=== PATIENT | male | born 1940 | race Caucasian/White ===

== ENCOUNTER → 2017-10-02 09:19 | Outpatient (CLI) | payer MEDICARE, OTHER ==
[2013-12-16 08:24] VITALS: BMI 27.9
[~2017-10-02 09:19] MED LIST: ALBUTEROL2.5 MG/0.5 UPD; AMARYL1 MG PO; GLUCOPHAGE850 MG PO; LOTREL 10/20 CA1 CAP PO; ONGLYZA5 MG PO
[2017-10-02 10:03] LABS: BASOPHILS 0.5 % (0-2); EOSINOPHILS 4.1 % (0-7); HEMATOCRIT 41.6 % (42.0-54.0); HEMOGLOBIN 14.3 g/dL (13.5-17.5); IMMATURE GRANULOCYTES 0.2 % (0-5); LYMPHOCYTES 18.8 % (15-50); MCH 31.2 pg (26.0-34.0); MCHC 34.4 g/dL (31.0-37.0); MCV 90.8 fL (80.0-100.0); MONOCYTES 8.5 % (2-11); NEUTROPHILS 67.9 % (40-80); PLATELET COUNT 218 10x3/uL (130-400); RBC 4.58 10x6/uL (4.20-6.10); WBC 6.3 10x3/uL (4.8-10.8)
[2017-10-02 10:16] LABS: ALBUMIN 3.7 g/dL (3.4-5.0); ANION GAP 15.1 mmol/L (8-16); BILIRUBIN - TOTAL 0.61 mg/dL (0.2-1.3); CALCIUM 8.7 mg/dL (8.5-10.1); CARBON DIOXIDE 26.3 mmol/L (21.0-32.0); CHOL - HDL RATIO 5.7 ratio (2.3-4.9); CREATININE - SERUM 1.3 mg/dL (0.6-1.3); LDL-HDL RATIO 4.1 ratio (1.5-3.5); POTASSIUM - SERUM 4.4 mmol/L (3.5-5.1); PROTEIN - SERUM 7.2 g/dL (6.4-8.2); THYROID STIMULATING HORMONE 1.72 uIU/mL (0.36-3.74)
== END | disposition home or self-care (01) ==
LOC: D.LAB 09:19
PROVIDERS: Family Medicine
DX: R63.4 Abnormal weight loss (principal); E78.81 Lipoid dermatoarthritis; E11.9 Type 2 diabetes mellitus without complications

== ENCOUNTER → 2017-11-14 12:38 | Outpatient (CLI) | payer MEDICARE, OTHER ==
[2013-12-16 08:24] VITALS: BMI 27.9
--- NOTE | ~2017-11-14 | EC ---
PATIENT:ELROY SCOTT DATE OF SERVICE: 11/14/17 SEX: M MEDICAL RECORD: [id number] DATE OF : 40 LOCATION:[facility] AGE OF PATIENT: 77 ADMISSION DATE: 11/14/17 REFERRING PHYSICIAN: INTERPRETING PHYSICIAN: ARCADIO KIRAN MD ECHOCARDIOGRAM REPORT ECHO CHARGES 4 ECHO COMPLETE Date: 11/14 CLINICAL DIAGNOSIS: CHEST PAIN,FATIGHE,HTN/PALPS ECHOCARDIOGRAPHIC MEASUREMENTS (adult normal given) AC root (d.<3.7cm) 4.4 cm LV Septum d (<1.2 cm> 2.1 cm Valve Excursion 1.8 cm LV Septum (systole) 2.2 cm Left Atria (s.<4.0cm> 4.0 cm LVPW d(<1.2cm) 1.7 cm RV (d.<2.3cm) 4.2 cm LVPW (sytole) 2.2 cm LV diastole(<5.6CM) 5.6 cm MV E-F(>70mm/sec) cm LV systole 3.2 cm LVOT Diameter 1.9 cm MV exc.(>10mm) 2.0 cm Est.ejection fraction (50-75%) % DOPPLER: LVIT cm/sec A 133 cm/sec E 91.0 cm/sec LA cm/sec RVSP 50 mmHg LVOT 119 cm/sec AOP1/2T 482 m/s Asc. Ao 158 cm/sec RVOT 79 cm/sec RA cm/sec PA 121 cm/sec AV Gradient Peak 9.95 mmHg AV Mean 1.02 mmHg AV Area 4.0 cm MV Gradient Peak 6.10 mmHg MV Mean 2.09 mmHg MV Area cm COMMENTS: E Learning Developer: 2 DIANE MI Senior Production Supervisor: 4 Dr. Kiran TAPE# PACS Pericardial Effusion N DATE OF SERVICE: PROCEDURE: Transthoracic echocardiogram. FINDINGS: 1. The patient has moderate concentric left ventricular hypertrophy. Inflow characteristics consistent with diastolic dysfunction. Ejection fraction 65%. 2. The left atrium is mildly dilated. 3. The mitral valve has mild mitral regurgitation. 4. The tricuspid valve has mild tricuspid regurgitation, RVSP of 50 mmHg. ECHOCARDIOGRAM REPORT [id number] ELROY SCOTT 5. The right ventricle is moderately dilated as well as the right atrium. 6. The pulmonic valve has mild pulmonic insufficiency and there is no pericardial effusion. CONCLUSION: The patient has evidence of moderate hypertensive heart disease with preserved LV systolic function, mild pulmonary hypertension. Right-sided dilatation may be secondary to hypertensive heart disease. TRANSINT:[id number] Voice Confirmation ID: [id number] DOCUMENT ID: [id number] ARCADIO KIRAN MD at 1120 CC: [id number] DICTATION DATE: 11/20/17 0949 ADMINISTRATIVE REPRESENTATIVE: 11/20/17 1031 DEP CLI 11/14/17 [id number] [place] [address]
[~2017-11-14 12:38] MED LIST changes: +ASPIRIN81 MG PO; +BENADRYL25 MG PO; +CORDARONE200 MG PO; +FORTAMET1000 MG/BO PO; +GLIMEPIRIDE4 MG PO; +GLUCOPHAGE1000 MG PO; +HYDRALAZINE HCL25 MG PO; +LIPITOR10 MG PO; +LISINOPRIL2.5 MG PO; +LOPRESSOR25 MG PO; +NORCO-5 PO
[2018-01-08 11:24] VITALS: BMI 25.8
== END | disposition home or self-care (01) ==
LOC: D.ECHO 12:38
DX: R09.89 Other specified symptoms and signs involving the circulatory and respiratory systems (principal); I20.9 Angina pectoris, unspecified; R07.9 Chest pain, unspecified; R00.2 Palpitations; E78.2 Mixed hyperlipidemia; R53.83 Other fatigue; I10 Essential (primary) hypertension; E11.9 Type 2 diabetes mellitus without complications

== ENCOUNTER → 2017-12-19 06:35 | Outpatient (CLI) | payer MEDICARE, OTHER ==
[~2017-12-19] VITALS: Ht 180.3 cm; Wt 77.3 kg
--- NOTE | ~2017-12-19 | HEMODYNAMI ---
PATIENT:ELROY SCOTT MEDICAL RECORD: [id number] : 40 LOCATION:[facility] ADMISSION DATE: 12/19/17 Generatedon:12/19/20179:06 Patient name: ELROY SCOTT Patient #: [id number] : 1940 Date of study: 12/19/2017 Page: Of Hemodynamic Procedure Report Patient Data Patient Demographics Procedure consent was obtained First Name: ELROY Gender: Male Last Name: TYLER : 1940 Middle Initial: FRANCISCA Age: 77 year(s) Patient #: [id number] Race: SSN: [id number] Additional ID: [id number] Contact details [address]: [address] [place] [address] State: [place] City: [place] Zip code: [address] Past Medical History Allergies Allergen Reaction Date Comments Reported Other allergy 12/19/2017 IODINATED CONTRAST- ORAL AND IV, SHELLFISH DERIVED, MORPHINE Admission Admission Data Admission Date: 12/19/2017 Admission Time: 6:35 Arrival Date: 12/19/2017 Arrival Time: 0:00 Admit Source: Other Insurance Payor: Medicare Height (in.): 71 BSA: 1.97 (m2) Height (cm.): 180.34 BMI: 23.71 (kg/m2) Weight (lbs.): 170 Weight (kg.): 77.11 Lab Results Lab Result Date: 12/19/2017 Lab Result Time: 0:00 Biochemistry Name Units Result Min Max BUN mg/dl 25 --(----)-* 7 18 Creatinine mg/dl 1.3 --(---*)-- 0.6 1.3 CBC Name Units Result Min Max Hemoglobin g/dl 13.9 --(*---)-- 13.5 17.5 Procedure Procedure Types Cath Procedure Diagnostic Procedure [facility] LHC w/Coronaries Sedation Charges Moderate Sedation up to 15 minutes Procedure Description Procedure Date Procedure Date: 12/19/2017 Procedure Start Time: 8:49 Procedure End Time: 9:03 Procedure Staff Name Function Leroy Puente MD Performing Physician Lupe Ramirez RT Monitor Krystal Kelly RT Scrub Clovis Wolfe RN Nurse Boaz Lopez RN Kitchen Steward Procedure Data Cath Procedure Fluoroscopy Diagnostic fluoroscopy Total fluoroscopy Time: 4 time: 4 min min Diagnostic fluoroscopy Total fluoroscopy dose: 464 dose: 464 mGy mGy Contrast Material Contrast Material Type Amount (ml) Isovue 300 36 Entry Location Entry Primary Successful Side Size Upsize Upsize Entry Closure Vines ccessful Closure Location (Fr) 1 (Fr) 2 (Fr) Remarks Device Remarks Radial Right 6 Fr Mechanical artery Short Compression Estimated blood loss: 5 ml Diagnostic catheters Device Type Used For End Catheter Placement DIAGNOSTIC Nabil 110cm Multi-vessel 5Fr catheter ([id number]) Angiography Procedure Complications No complications Procedure Medications Medication Administration Route Dosage 0.9% NaCl I.V. 100 ml/hr Oxygen etCO2 Nasal cannula 2 l/min Heparin Flush Bag added to field 2 bags (1000units/500ml NS) Lidocaine 2% added to field 20 Versed I.V. 1 mg Fentanyl I.V. 25 mcg Radial Cocktail added to field 1 syringe (Verapomil 2mg/Nitro 400mcg/Heparin 1500units) Radial Cocktail I.A. 1 syringe (Verapomil 2mg/Nitro 400mcg/Heparin 1500units) Hemodynamics Rest BSA: 1.97 (m2) HGB: 13.9 (g/dl) O2 Consumption: Estimated: 220.14 (ml/min) O2 Co nsumption indexed: Estimated:111.75 (ml/min/m) Heart Rate: 62 (bpm) Pressure Samples Time Site Value (mmHg) Purpose Heart Use Rate(bpm) 8:54 LV 169/15,28 EDP 65 Gradients Valve Time Site Site Mean SEP/DFP Peak To Heart Use 1 2 (mmHg) (sec/min) Peak Rate (mmHg) (bpm) Aortic 8:55 LV AO 66 Snapshots Pre Cath Intra NCS Post Cath Vital Signs Time Heart Resp SPO2 etCO2 NIBP (mmHg) Rhythm Pain Sedation Rate (ipm) (%) (mmHg) Status Level (bpm) 8:43:41 63 14 97 0 185/96(152) NSR 0 (11) 10(A) , No pain 8:48:32 63 21 96 25.6 170/89(145) NSR 0 (11) 10(A) , No pain 8:53:13 68 12 98 20.3 152/89(128) NSR 0 (11) 9(A) , No pain 8:57:53 65 18 97 34.6 163/88(138) NSR 0 (11) 9(A) , No pain 9:02:38 64 20 97 33.1 164/87(144) NSR 0 (11) 9(A) , No pain Medications Time Medication Route Dose Verified Delivered Reason Notes Effectiveness by by 8:49:27 0.9% NaCl I.V. 100 Clovis Clovis Per ml/hr Lorbrenda Wolfe physician RN RN 8:49:36 Oxygen etCO2 2 l/min Clovis Clovis Per Nasal Yaneth Wolfe physician cannula RN RN 8:49:46 Heparin Flush added 2 bags Clovis Clovis used for Bag to Yaneth Wolfe procedure (1000units/500ml field RN RN NS) 8:51:01 Lidocaine 2% added 20ml Clovis Clovis for local to vial Lorigan Yaneth anesthetic field RN RN 8:51:10 Versed I.V. 1 mg Clovis Clovis for sedation Yaneth Wolfe RN RN 8:51:18 Fentanyl I.V. 25 mcg Clovis Clovis for sedation Yaneth Wolfe RN RN 8:51:30 Radial Cocktail added 1 Clovis Clovis used for (Verapomil to syringe Yaneth Wolfe procedure 2mg/Nitro RN RN 400mcg/Heparin 1500units) 8:51:44 Radial Cocktail I.A. 1 Clovis Leroy for (Verapomil syringe Yaneth grimes 2mg/Nitro RN 400mcg/Heparin 1500units) Procedure Log Time Note 8:08:50 Signed procedure consent form obtained from patient. 8:08:51 Time tracking: Regular hours (M-F 7:00 - 5:00) 8:08:54 Plan of Care:Hemodynamics will remain stable., Cardiac rhythm will remain stable., Comfort level will be maintained., Respiratory function will remain adequate., Patient/ family verbilizes understanding of procedure., Procedure tolerated without complication., Recovers from procedure without complications.. 8:12:43 Patient allergic to Other allergyIODINATED CONTRAST- ORAL AND IV, SHELLFISH DERIVED, MORPHINE 8:13:05 Lab Result : Creatinine 1.3 mg/dl 8:13:05 Lab Result : BUN 25 mg/dl 8:13:05 Lab Result : Hemoglobin 13.9 g/dl 8:18:33 Clovis Wolfe RN sent for patient. Start room use. 8:20:15 H&P Date Dictated: 12/16/2017 Within 30 days and on chart., H&P Addendum completed by physician on day of procedure. (MUST COMPLETE FOR ALL OUTPATIENTS). 8:26:57 Patient received from Pre/Post Procedure Room to CCL 1 Alert and oriented. Tansferred to table in Supine position. 8:26:59 Warm blankets applied, and sonia hugger turned on for patient comfort. 8:27:00 Correct patient and procedure confirmed by team. 8:27:01 ECG and BP/O2 sat monitors applied to patient. 8:42:45 Vital chart was started 8:42:46 Baseline sample Acquired. 8:42:56 Rhythm: sinus rhythm 8:42:58 Full Disclosure recording started 8:42:59 Pre-procedure instructions explained to patient. 8:43:00 Pre-op teaching completed and patient verbalized understanding. 8:43:01 Family in waiting room. 8:43:03 Patient NPO since Midnight. 8:43:09 Is the patient allergic to Iodine/contrast media? Yes. 8:43:10 Was the patient premedicated? Yes 8:43:11 Is patient on blood thinner?Yes 8:43:14 ACC The patient was administered the following blood thiners within the last 24 hours: ACCPlavix 8:43:15 Patient diabetic? Yes. 8:43:16 If diabetic: On Metformin? Yes 8:43:20 If on Metformin: Last Dose? 12/17/2017 8:43:23 Previous problem with sedation/anesthesia? No ? 8:43:25 Snore? Yes 8:43:26 Sleep apnea? No 8:43:26 Deviated septum? No 8:43:27 Opens mouth fully? Yes 8:43:28 Sticks out tongue? Yes 8:43:31 Airway obstruction? Yes COPD 8:43:36 Dentures? Yes IN TIGHT 8:43:42 Pre procedure: right dorsailis pedis pulse 1+ Palpable, but thready & weak; easily obliterated 8:43:44 Pre procedure: left dorsailis pedis pulse 1+ Palpable, but thready & weak; easily obliterated 8:43:46 Patient pain scale 0/10 ?. 8:43:51 IV patent on arrival in left forearm with 0.9% NaCl at [facility]. 8:43:53 Lab results completed and on chart. 8:43:57 Right Radial & Right Groin area was prepped with chlora-prep and draped in sterile fashion 8:43:58 Alarms reviewed by R. N. 8:43:59 Sharps counted by scrub and verified by R.N. 8:44:01 Physician arrived 8:44:01 --------ALL STOP TIME OUT------ 8:44:02 Final Timeout: patient, procedure, and site verified with staff and physician. All members of the team are in agreement. 8:44:03 Right Radial & Right Groin site verified by team. 8:44:06 Physical assessment completed. ASA score P 2 - A patient with mild systemic disease as per Leroy Puente MD. 8:44:10 Sedation plan: IV Moderate Sedation Medication:Versed, Fentanyl 8:44:14 Use device set Radial Dx or PCI 8:44:15 ACIST Syringe (15346) opened to sterile field. 8:44:16 Medline Cath Pack ([id number]) opened to sterile field. 8:44:16 Bag Decanter (2002) opened to sterile field. 8:44:16 DIAGNOSTIC WIRE .035 260cm J wire (273437) opened to sterile field. 8:44:17 ACIST Hand Control (88949) opened to sterile field. 8:44:17 ACIST Manifold (48436) opened to sterile field. 8:44:18 Tegaderm 4 x 4 (1626W) opened to sterile field. 8:44:18 MBrace Wrist Support ([id number]) opened to sterile field. 8:44:20 SHEATH 6Fr Prelude Radial ([id number]) opened to sterile field. 8:49:27 0.9% NaCl 100 ml/hr I.V. was administered by Clovis Wolfe RN; Per physician; 8:49:36 Oxygen 2 l/min etCO2 Nasal cannula was administered by Clovis Wolfe RN; Per physician; 8:49:36 Procedure started. 8:49:40 Local anesthetic to right radial artery with Lidocaine 2% by Leroy Puente MD.INITIAL ACCESS ONLY 8:49:46 Heparin Flush Bag (1000units/500ml NS) 2 bags added to field was administered by Clovis Wolfe RN; used for procedure; 8:49:50 A 6 Fr Short sheath was inserted into the Right Radial artery 8:51:01 Lidocaine 2% 20ml vial added to field was administered by Clovis Wolfe RN; for local anesthetic; 8:51:10 Versed 1 mg I.V. was administered by Clovis Wolfe RN; for sedation; 8:51:18 Fentanyl 25 mcg I.V. was administered by Clovis Wolfe RN; for sedation; 8:51:30 Radial Cocktail (Verapomil 2mg/Nitro 400mcg/Heparin 1500units) 1 syringe added to field was administered by Clovis Wolfe RN; used for procedure; 8:51:44 Radial Cocktail (Verapomil 2mg/Nitro 400mcg/Heparin 1500units) 1 syringe I.A. was administered by Leroy Puente MD; for vasodilation; 8:53:49 A DIAGNOSTIC Nabil 110cm 5Fr catheter ([id number]) was advanced over the wire and used for Multi-vessel Angiography. 8:54:54 LV hemodynamics recorded. 8:54:55 LV gram done using PIÑA 8:55:02 Injector settings: Ml/sec: 12, Volume: 8\, 8:55:45 EF : 55 % 8:55:54 RCA angiography performed. 8:55:57 Injector settings: Ml/sec: 3, Volume: 6, 8:59:27 LCA angiography performed. 8:59:31 Injector settings: Ml/sec: 3, Volume: 6, 8:59:57 Catheter removed. 9:01:14 TR BAND Standard ([id number]) opened to sterile field. 9:01:30 Sheath removed intact; hemostasis achieved with Mechanical Compression to the Right Radial artery. 9:01:32 Procedure ended.(Physican Out) 9:01:52 Fluoroscopy time 04.00 minutes. 9::57 Fluoroscopy dose: 464 mGy 9::57 Flurop Dose total: 464 9:02:02 Contrast amount:Isovue 300 36ml. 9:02:03 Sharps counted by scrub and verified by R.N. 9:02:07 TR band inflated with 12cc of air. 9:02:08 Insertion/operative site no bleeding no hematoma. 9:02:23 Post Procedure Pulses reassessed and unchanged 9:02:26 Post procedure rhythm: unchanged. 9:02:31 Estimated blood loss: 5 ml 9:02:33 Post procedure instruction explained to patient.Patient verbalizes understanding. 9:02:33 Patient needs reinforcement of post procedure teaching. 9:03:06 Procedure type changed to Cath procedure, Diagnostic procedure, LHC, LHC w/Coronaries, Sedation Charges, Moderate Sedation up to 15 minutes 9:03:07 Procedure and supply charges have been captured, reviewed, submitted and are correct. 9:03:11 Procedure Complication : No complications 9:03:14 Vital chart was stopped 9:03:15 See physician's report for complete and final results. 9:03:18 Report given to Pre/Post Procedure Room. 9:03:22 Patient transfered to Pre/Post Procedure Room with Stretcher. 9:03:25 Procedure ended. 9:03:25 Full Disclosure recording stopped 9:03:29 End room use (Document Last) 9:04:28 Admit Source: Other 9:04:30 Arrival Date: 12/19/2017 12:00:00 AM 9:04:41 Insurance Payor : Medicare 9:04:57 Patient Height : 71 inches 9:05:00 Patient Weight : 170 lbs Device Usage Item Name Manufacture Quantity Catalog Number Hospital Part Current M inimal Lot# / Charge Number Stock Stock Serial# Code ACIST Syringe Acist 1 72232 325704 412263 [id number] 2 0 (62074) [employer] Medline Cath Cardinal 1 [id number] 018350 49284 374337 5 Pack Health ([id number]) Bag Decanter Microtek 1 868258 94776 924482 5 () Medical Inc. DIAGNOSTIC WIRE St Deric 1 517972 739908 853495 890118 3 0 .035 260cm J wire (490874) ACIST Hand Acist 1 89992 602358 247202 346183 5 Control (63831) [employer] Inc ACIST Manifold Acist 1 53178 635734 016463 604784 5 (89143) [employer] Inc Tegaderm 4 x 4 3M 1 1626W 161814 263401 323165 5 (1626W) MBrace Wrist Advanced 1 140-0250-00 119987 67530 661339 5 Support Vascular ([id number]) Dynamics SHEATH 6Fr Merit 1 [id number] 671130 040139 129954 5 Prelude Radial Medical ([id number]) DIAGNOSTIC Terumo 1 40-6730 386701 358557 838980 5 Nabil 110cm 5Fr catheter (575405) TR BAND Terumo 1 [id number] 890117 593775 898904 4 0 Standard ([id number]) Signature Audit [place] Stage Time Signature Unsigned Intra-Procedure 12/19/2017 Lupe Ramirez 9:06:07 AM RT(R) Signatures Monitor : Lupe Ramirez RT Signature : Date : Time : [facility] [address] [place] [address]
[2017-12-19 06:52] VITALS: BP 200/98; Ht 180.3 cm; Wt 77.3 kg
[2017-12-19 07:13] LABS: BASOPHILS 0.2 % (0-2); EOSINOPHILS 10.7 % (0-7); HEMATOCRIT 40.3 % (42.0-54.0); HEMOGLOBIN 13.9 g/dL (13.5-17.5); IMMATURE GRANULOCYTES 0.2 % (0-5); LYMPHOCYTES 21.5 % (15-50); MCH 31.4 pg (26.0-34.0); MCHC 34.5 g/dL (31.0-37.0); MCV 91.2 fL (80.0-100.0); MEAN PLATELET VOLUME 10.6 fL (7.4-10.4); NEUTROPHILS 57.4 % (40-80); PLATELET COUNT 215 10x3/uL (130-400); RBC 4.42 10x6/uL (4.20-6.10); RDW 13.1 % (11.5-14.5); WBC 5.8 10x3/uL (4.8-10.8)
[2017-12-19 07:28] LABS: CALCIUM 8.5 mg/dL (8.5-10.1); CARBON DIOXIDE 26.2 mmol/L (21.0-32.0); CREATININE - SERUM 1.3 mg/dL (0.6-1.3); POTASSIUM - SERUM 4.2 mmol/L (3.5-5.1)
== END | disposition home or self-care (01) ==
LOC: D.CATH 06:35
PROVIDERS: Internal Medicine Cardiovascular Disease
DX: I25.10 Atherosclerotic heart disease of native coronary artery without angina pectoris (principal); R94.39 Abnormal result of other cardiovascular function study; Z01.812 Encounter for preprocedural laboratory examination

== ENCOUNTER → 2017-12-29 17:49 | Outpatient (CLI) | payer MEDICARE, OTHER ==
[2017-12-19 06:52] VITALS: BMI 23.7
[2017-12-29 18:45] LABS: CHOL - HDL RATIO 4.2 ratio (2.3-4.9); LDL-HDL RATIO 2.5 ratio (1.5-3.5)
== END | disposition home or self-care (01) ==
LOC: D.LABREF 17:49
PROVIDERS: Internal Medicine Cardiovascular Disease
DX: E78.5 Hyperlipidemia, unspecified (principal)

== ENCOUNTER → 2017-12-30 14:04 | Outpatient (CLI) | payer MEDICARE, OTHER ==
[2017-12-19 06:52] VITALS: BMI 23.7
== END | disposition home or self-care (01) ==
LOC: D.CT 12-29 10:00
DX: I65.23 Occlusion and stenosis of bilateral carotid arteries (principal)

== ENCOUNTER 2018-01-07 05:00 | Inpatient (IN) | payer MEDICARE, OTHER ==
[2018-01-06 10:34] LABS: BASOPHILS 0.4 % (0-2); EOSINOPHILS 4.6 % (0-7); HEMATOCRIT 41.2 % (42.0-54.0); HEMOGLOBIN 14.2 g/dL (13.5-17.5); IMMATURE GRANULOCYTES 0.3 % (0-5); LYMPHOCYTES 19.3 % (15-50); MCH 31.6 pg (26.0-34.0); MCHC 34.5 g/dL (31.0-37.0); MCV 91.6 fL (80.0-100.0); MEAN PLATELET VOLUME 10.9 fL (7.4-10.4); MONOCYTES 9.3 % (2-11); NEUTROPHILS 66.1 % (40-80); PLATELET COUNT 218 10x3/uL (130-400); RDW 12.9 % (11.5-14.5)
[2018-01-06 10:39] LABS: APTT 26.6 SECONDS (22.8-39.4); INR 1.09 (0.85-1.17); PROTIME 13.7 SECONDS (11.6-15.0)
[2018-01-06 11:03] LABS: ALBUMIN 3.7 g/dL (3.4-5.0); ANION GAP 8.6 mmol/L (8-16); BILIRUBIN - TOTAL 0.37 mg/dL (0.2-1.3); CALCIUM 9.5 mg/dL (8.5-10.1); CARBON DIOXIDE 32.8 mmol/L (21.0-32.0); CREATININE - SERUM 1.5 mg/dL (0.6-1.3); PHOSPHOROUS 3.9 mg/dL (2.5-4.9); POTASSIUM - SERUM 4.4 mmol/L (3.5-5.1); PROTEIN - SERUM 7.5 g/dL (6.4-8.2); THYROID STIMULATING HORMONE 2.79 uIU/mL (0.36-3.74); URIC ACID 5.4 mg/dL (2.6-7.2)
[2018-01-06 11:26] LABS: APPEARANCE CLEAR (CLEAR); BACTERIA MODERATE /hpf (NONE SEEN); BILIRUBIN NEGATIVE (NEGATIVE); COLOR YELLOW (YELLOW); EPITHELIAL CELLS 0-5 /hpf (0-5); GLUCOSE 250 mg/dL (NEGATIVE); GRANULAR CAST RARE /lpf (NONE SEEN); KETONE NEGATIVE (NEGATIVE); MUCUS <1+ /lpf (NONE SEEN); NITRITE NEGATIVE (NEGATIVE); PROTEIN 1+ mg/dL (NEGATIVE); UROBILINOGEN NORMAL (NORMAL); WHITE CELLS - URINE 0-5 /hpf (0-5)
[~2018-01-07] VITALS: Ht 180.3 cm; Wt 80.1 kg
[2018-01-07] VITALS (46 sets, daily range): BP systolic 89–145; BP diastolic 49–77; BMI 24.1; BMI 25.1
--- NOTE | ~2018-01-07 | OP ---
PATIENT NAME: ELROY SCOTT MEDICAL RECORD: [id number] :40 LOCATION:[id number] ADMISSION DATE:01/07/18 SURGEON: LACI ADRIAN MD DATE OF OPERATION: 01/07/2018 SURGEON: Laci Adrian MD ANESTHESIA: General endotracheal, Dr. Nicholson. OPERATION PERFORMED: Coronary artery bypass. 1. Left internal thoracic to left anterior descending. 2. Reverse saphenous vein graft to the obtuse marginal coronary artery. 3. Reverse saphenous vein graft to the first diagonal coronary artery. 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 POSTOPERATIVE DIAGNOSIS: Atherosclerosis of the coronary arteries with angina. INDICATION FOR OPERATION: Compelling anatomy. FINDINGS OF THE OPERATION: The vessels were severely and diffusely diseased; however, the caliber was adequate for grafting in the first diagonal, first obtuse marginal and left anterior descending coronary artery. The distal right coronary artery was not graftable. There were no other obtuse marginal branches. The vein segments were adequate, but required harvesting from both thighs. The left internal thoracic was an excellent vessel for grafting. ESTIMATED BLOOD LOSS: Cell Saver was used. DESCRIPTION OF PROCEDURE: After informed consent, adequate preoperative medication evaluation, the patient was brought to the operating room and placed on the table in the supine position. After induction of general endotracheal anesthesia and application of appropriate monitoring devices, the chest, neck, abdomen, and both legs were prepped and draped in sterile field, utilizing Betadine scrub, alcohol, and Betadine solution. A Betadine-impregnated drape was also used. Saphenous vein was harvested from the right thigh and left thigh and prepared for reverse saphenous vein grafting. The legs were closed over drains utilizing 3-0 Vicryl and skin dali. A median sternotomy incision was used and dissection carried down the fascia. Hemostasis was maintained with electrocautery. Sternum was divided. Innominate vein was identified and protected. Left internal thoracic was taken down and prepared for grafting. The pericardium was opened and a pericardial well was performed utilizing pericardial traction sutures. The patient was given a calculated dose of heparin. Cannulated in the standard fashion utilizing one aortic and one 2-stage cannula in the atrium and inferior vena cava. The patient was placed on cardiopulmonary bypass, cooled to 32 degrees centigrade. A cross clamp was placed just proximal to the aortic cannula and the patient was given cardioplegic solution through the aortic root. The patient was given a cold induction and cold maintenance plus given cold intermittent cardioplegic solution throughout the procedure, through the grafts, through the root or a combination of both. The first vessel to be grafted was the obtuse marginal. It was grafted end-to-side utilizing a running 7-0 Prolene suture. Graft was OPERATIVE REPORT [id number] ELROY SCOTT measured back to the aorta and a proximal anastomosis fashioned utilizing running 6-0 Prolene suture. Next, the first diagonal was grafted end-to-side utilizing a running 8-0 Prolene suture. Graft was measured back to the aorta and a proximal anastomosis fashioned utilizing running 6-0 Prolene suture. The left internal thoracic was brought through a hole in pericardium, sutured left anterior descending end-to-side utilizing a running 8-0 Prolene suture. Pedicle was attached to epicardium with 6-0 Prolene suture. All maneuvers to remove trapped air were performed. The patient was given warm cardioplegic reperfusion and controlled reperfusion. The patient rewarmed to 37 degrees centigrade. Two atrial and 2 ventricular pacing wires were placed in the heart brought out through the epigastric area. The patient was weaned from cardiopulmonary bypass. After being stable off bypass, he was given a calculated dose of protamine to reverse the heparin. Hemostasis was achieved. A #40 right angle and #36 chest tubes were brought in through the epigastric area and placed in mediastinum. A separate Sundar tube was placed in the left hemithorax. Chest was again irrigated. Instrument count and sponge count were correct times 2. Chest closed in layers utilizing #7 wire on the sternum, #2 Vicryl on linea alba and pectoralis fascia. Subcutaneous tissue was approximated with 3-0 Vicryl and skin approximated with 3-0 subcuticular Vicryl. Sterile dressings were applied. The patient tolerated the procedure well and was transferred to CV ICU in satisfactory condition. TRANSINT:[id number] Voice Confirmation ID: [id number] DOCUMENT ID: [id number] LACI ADRIAN MD at 1235 CC: [id number] DICTATION DATE: 01/07/18 1406 ALLIGATOR SHEAR OPERATOR: 01/07/18 1419 DIS IN 01/12/18 [id number] [place] [address]
--- NOTE | ~2018-01-07 | HP ---
PATIENT: ELROY SCOTT MEDICAL RECORD: [id number] ACCOUNT: [id number] LOCATION:[facility] : 40 ADMISSION DATE: 01/07/18 HISTORY AND PHYSICAL EXAMINATION ELROY Caldera (77yo, M) ID# [id number]. Date/Time12/29/2017 09:49AYBYR94/27/1941Service Dept.NP_[facility] ClinicProviderEDJESUS COLLIER MDInsuranceMed Primary: [place] Insurance # : [id number] Referring Provider Name : SULLY SAENZ Employer Name : UNKNOWN Med Secondary: [employer] [place] [employer] (PPO) Insurance # : [id number] Policy/Group # : [id number] Employer Name : UNKNOWN Prescription: [employer] - This member could not be found in the payer's files. Please verify coverage and all member demographic information. Chief Complaint Followup: Coronary arteriosclerosis referral for CAD Patient's Care Team Referring Provider (): SULLY SAENZ: [address] [place] [address], [address], [place] [address], , Geometry Professor: ARCADIO KIRAN MD Patient's Pharmacies [place] [address] (ER[facility]): [address] [place] [address], Ph , Vitals BP:148/70 sitting R arm 12/29/2017 09:25 am 146/76 sitting L arm 12/29/2017 09:27 amBP Cuff Size:adult 12/29/2017 09:25 am adult 12/29/2017 09:27 amHR:66,reg 12/29/2017 09:27 amHt:511 ft 12/29/2017 09:27 amWt:170 lbs 12/29/2017 09:27 amNotes:TIRED, FELT "BLAH", LOST 30 POUNDS OVER PAST SIX MONTHS. SOB WITH EXERTION. 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 JUST BEGAN TO HAVE TIRED AND SOB PAST SIX MONTHS OR SO. 12/29/2017 09:29 amBMI:0 12/29/2017 09:27 Molly Reviewed Allergies IODINEMORPHINE: HallucinationsSHELLFISH DERIVEDMedications Reviewed Medications glimepiride 4 mg tablet Take 1 tablet(s) every day by oral route.12/13/13 enteredKrlucy HerronGlucophage 850 mg tablet Take 1 tablet(s) twice a day by oral route.12/13/13 enteredKristen HerronLotrel 10 mg-20 mg capsule Take 1 capsule(s) every day by oral route.12/13/13 enteredKristen HerronOnglyza 5 mg tablet Take 1 tablet(s) every day by oral route.12/13/13 enteredKristen HerronProblems Reviewed Problems Lipoma of skin Diabetes mellitus Essential hypertension Coronary arteriosclerosis Infected sebaceous cyst Fatigue Family History HISTORY AND PHYSICAL [id number] ELROY SCOTT Reviewed Family History Non-contributory.Social History Reviewed Social History General Occupation: Retired Marital status: Smoking Status: Never smoker Non-smoker Caffeine intake: Moderate Surgical History Reviewed Surgical History Other - 12/2013 - excision of back lipoma and song cyst Past Medical History Reviewed Past Medical History Angina: Y Carotid Stenosis: Y - bilateral Coronary Artery Disease: Y Diabetes: Y Heart Disease: Y High Blood Pressure: Y Hyperlipidemia: Y Hypertension: Y Shortness of Breath: Y Documents for Discussion Discussed the following documents: US, DUPLEX, CAROTID ARTERY - 11/14/17 US, DOPPLER ECHOCARDIOGRAM, W/ COLOR FLOW - 11/14/17 CARDIAC CATHETERIZATION (SURG) - 12/19/17 Screening None recorded. HPI Dyspnea Reported by patient. Quality: dyspnea Severity: mild Context: with activity; walking up inclines Aggravating Factors: activity Associated Symptoms: no chest pain; no palpitations; no orthopnea; no PND; no fever; no chills; no wheezing; no dietary indiscretion; no sputum production; no hemoptysis; no weight gain; no dys pepsia; UNEXPLAINED WEIGHT LOSS 30-40 POUNDS OVER THE PAST FEW YEARS Fatigue Reported by patient. Quality: continuous Severity: normal sleep patterns; changes in normal activities Duration: constant; symptoms lasting over 2 weeks Timing: worse Context: symptoms do not improve on weekends/vacations Modifying Factors: no new stressors in life Associated Symptoms: no drug/alcohol withdrawal; no depression; no anxiety; no sleep disturbances; no snoring; periods of not breathing (apnea) have not been observed; no recent change in weight HISTORY AND PHYSICAL [id number] ELROY SCOTT coronary artery disease anginal equivalent shortness of breath ROS Patient reports exercise intolerance but reports no fever, no night sweats, no significant weight gain, and no significant weight loss. He reports shortness of breath when walking but reports no chest pain, no arm pain on exertion, no shortness of breath when lying down, no palpitations, and no known heart murmur. He reports shortness of breath but reports no cough, no wheezing, and no coughing up blood. He repo rts no dry eyes, no irritation, and no vision change. He reports no difficulty hearing and no ear pain. He reports no frequent nosebleeds and no nose/sinus problems. He reports no sore throat, no bleeding gums, no snoring, no dry mouth, no mouth ulcers, n o oral abnormalities, and no teeth problems. He reports no jugular vein distension and no swollen glands. He reports no abdominal pain, no vomiting, normal appetite, no diarrhea, not vomiting blood, no nausea, and no constipation. He reports no incontinenc e , no difficulty urinating, no hematuria, and no increased frequency. He reports no muscle aches, no muscle weakness, no arthralgias/joint pain, no back pain, and no swelling in the extremities. He reports no abnormal mole, no jaundice, and no rashes. He r e ports no loss of consciousness, no weakness, no numbness, no seizures, no dizziness, and no headaches. He reports no depression, no sleep disturbances, feeling safe in relationship, and no alcohol abuse. He reports no fatigue. He reports no swollen glands and no bruising. He reports no runny nose, no sinus pressure, no itching, no hives, and no frequent sneezing. ROS as noted in the HPI Physical Exam Patient is a 77-year-old male. Constitutional: General Appearance well nourished and developed and healthy-appearing. Level of Distress NAD. Ambulation ambulating normally. Cardiovascular: Apical Impulse not displaced or no thrill. Heart Auscultation normal s1 and s2; no murmurs, rubs, or gallops; and RRR. Arterial Pulses no abdominal aor ta bruits, femoral bruits, or popliteal bruits and 2+ bilateral, carotid 2+ bilateral, femoral 2+ bilateral, popliteal 2+ bilateral, and dorsalis pedis 2+ bilateral; left carotid bruit. Edema no edema or varicosities. Lungs: Repiratory Effort no dyspnea. Percussion no hyperresonance or dullness or flatness. Auscultation no wheezing, rhonchi, or rales / crackles and breathing sounds normal, good air movement, and CTA except as noted. Abdomen: Bowl Sounds normal. Inspection and Palpation no tenderness, guar ding, masses, or rebound tenderness and soft and non-distended. Liver non-tender and no hepatomegaly. Spleen non-tender and no splenomegaly. Hernia none palpable. Musculoskeletal System: Gait And Stance normal gait and stance. Digits and Nails normal nails and no cyanosis. Neurologic: Cranial Nerves grossly intact. Reflexes DTRs 2+ bilaterally throughout. Sensation grossly intact. Lymph Nodes: Lymph Nodes no cervical LAD, supraclavicular LAD, axillary LAD, or inguinal LAD. Eyes: Lids and Conjunctivae no discharge or pallor and non-injected. Pupils PERRLA. Cornea grossly intact. EOM EOMI. Lens clear. Sclerae non-icteric. HISTORY AND PHYSICAL [id number] ELROY SCOTT Neck: Neck no masses, enlarged lymph nodes, or carotid bruits and supple and trachea midline. Thyroid no enlargement or nodules and non-tender. Skin: Inspection and Palpation no rash, lesions, ulcers, jaundice, or abnormal nevi. Assessment / Plan atherosclerosis coronary arteries with angina pectoris 1. Coronary arteriosclerosis I25.10: Atherosclerotic heart disease of [place] coronary artery without angina pectoris I25.118: Atherosclerotic heart disease of [place] coronary artery with other forms of angina pectoris Discussion Notes oocclusive coronary artery disease with angina and shortness of breath Left carotid bruit I have discussed the patient's disease process with him and his in detail as well as the alternative methods of treatment. We discussed coronary artery bypass including the expected benefits and risk which included bleeding, infection , stroke, , and imponderables.he understands all of the above and wishes to proceed with planned surgery. I think that he would benefit from CT angiogram of his carotids for surgery .After his CT scan we will schedule him for coronary artery bypass ARRON COLLIER MD at 1256 CC: [id number] DICTATION DATE: 12/29/17 0900 PLASTICS SCIENTIST: SÁNCHEZ 01/01/18 1322 PRE IN [facility] [address] [id number]
--- NOTE | ~2018-01-07 | TEE ---
PATIENT:ELROY SCOTT MEDICAL RECORD: [id number] LOCATION:[place] [address] AGE OF PATIENT: 77 ADMISSION DATE: 01/07/18 SEX: M REFERRING PHYSICIAN: INTERPRETING PHYSICIAN: ARCADIO KIRAN MD TRANSESOPHAGEAL ECHOCARDIOGRAM Date: 01/07/18 FLIP CHARGE Y INDICATIONS: CABG PREMEDICATIONS: PATIENT'S RESPONSE PROCEDURE DOPPLER MEASUREMENTS: LVIT LA PA RA LVOT RVOT Asc. Ao AV Gradient Peak AV Mean AV Area MV Gradient Peak MV Mean MV Area INTERPRETATION: LVD: 3.3 LVS: 2.2 Doppler: 2-D: COLOR FLOW DOPPLER NORMAL SALINE STUDY: MISCELLANOUS: DIAGNOSIS: PLAN: Service Unit Operator:4 Dr. Kiran Maintenance Specialist: Calista DANIELLE COMMENTS: DATE OF SERVICE: 01/08/2018 PROCEDURE: Transesophageal echocardiogram intraoperatively. FINDINGS: 1. Left ventricle and left atrium were well visualized. The left atrium has normal size, structure and function. 2. The left ventricle has mild hypertrophy, normal function. 3. The mitral valve has [id number] mitral regurgitation, centrally located. TRANSESOPHAGEAL ECHOCARDIOGRAM REPORT [id number] ELROY SCOTT V 4. The aortic valve appears to be grossly normal. 5. The right atrium and right ventricle are normal. There is catheter artifact in the right ventricle. Post-CABG, the LV function appeared to be well preserved, even hyperkinetic with ejection fraction of 70% to 75%. IMPRESSION: This is a normal intraprocedural transesophageal echocardiogram. TRANSINT:[id number] Voice Confirmation ID: [id number] DOCUMENT ID: [id number] at 1144 CC: [id number] DICTATION DATE: 01/08/18 0950 GEOTECHNICAL LABORATORY TECHNICIAN: 01/08/18 1050 DIS IN 01/12/18 [place] [id number] [place] [address]
--- NOTE | ~2018-01-07 | MORECARE ---
CASE MANAGEMENT DISCHARGE SUMMARY PATIENT: ELROY SCOTT UNIT: [id number] ADM DATE: 01/07/18 AGE: 77 : 40 SEX: M ROOM/BED: [facility] AUTHOR: CASE, BEHAVIORIST PHYSICIAN: REFERRING PHYSICIAN: ARRON COLLIER MD DATE OF SERVICE: 01/07/18 Discharge Plan Patient Name: ELROY SCOTT [facility] [facility] 1940 Planned Disposition: Home Anticipated Discharge Date: Discharge Date: Expected LOS: Initial Reviewer: [email or web address] Initial Review Date: 01/12/2018 Generated: 01/12/18 10:17 am DCPIA - Discharge Planning Initial Assessment Updated by [email or web address]: Madelyn Monroe on 01/12/18 9:16 am * Is the patient Alert and Oriented? Yes * How many steps to enterexit or inside your home? * PCP DR. SAENZ * Pharmacy [facility] * Preadmission Environment Home with Family * ADLs Independent * Other Equipment NEBULIZER, GLUCOMETER * List name and contact numbers for known caregivers / representatives who currently or will assist patient after discharge: VICTOR MANUEL SCOTT [phone] * Verbal permission to speak to the caregivers and representatives has been obtained from the patient. Yes * Community resources currently utilized None * Additional services required to return to the preadmission environment? No * Can the patient safely return to the preadmission environment? Yes * Has this patient been hospitalized within the prior 30 days at any hospital? No Patient Name: ELROY SCOTT Page [id number] All edits/amendments must be made on the electronic document DICTATION DATE: 01/12/18915 SPORTS MANAGER: 01/12/18915 RPT#: [id number] DC DATE: STATUS: ADM IN [facility] [address] [place] [address] END OF REPORT
[~2018-01-07 05:00] MED LIST changes: -ASPIRIN81 MG PO; -BENADRYL25 MG PO; -CORDARONE200 MG PO; -HYDRALAZINE HCL25 MG PO; -LISINOPRIL2.5 MG PO; -LOPRESSOR25 MG PO; -NORCO-5 PO
[2018-01-07] MEDS ORDERED: BENADRYL25 MG PO (05:34)
[2018-01-07 08:26] LABS: PLT FUNCT.(P2Y12) PLAVIX 288 PRU (194-418)
[2018-01-07 13:41] LABS: MCH 30.8 pg (26.0-34.0); MCHC 34.1 g/dL (31.0-37.0); MCV 90.3 fL (80.0-100.0); MEAN PLATELET VOLUME 10.4 fL (7.4-10.4); RDW 12.7 % (11.5-14.5)
[2018-01-07 13:53] LABS: ANION GAP 14.1 mmol/L (8-16); CALCIUM 7.8 mg/dL (8.5-10.1); CREATININE - SERUM 1.3 mg/dL (0.6-1.3); POTASSIUM - SERUM 4.1 mmol/L (3.5-5.1)
[2018-01-07 14:25] LABS: APTT 32.5 SECONDS (22.8-39.4); HEMOGLOBIN 9.9 g/dL (13.5-17.5); INR 1.45 (0.85-1.17); PROTIME 17.2 SECONDS (11.6-15.0); RBC 3.21 10x6/uL (4.20-6.10); WBC 14.8 10x3/uL (4.8-10.8)
[2018-01-08] VITALS (71 sets, daily range): BP systolic 116–145; BP diastolic 50–73; Ht 180.3 cm; Wt 80.1 kg
[2018-01-08 06:11] LABS: HEMATOCRIT 25.7 % (42.0-54.0); HEMOGLOBIN 8.7 g/dL (13.5-17.5); MCH 30.7 pg (26.0-34.0); MCHC 33.9 g/dL (31.0-37.0); MCV 90.8 fL (80.0-100.0); MEAN PLATELET VOLUME 9.8 fL (7.4-10.4); RBC 2.83 10x6/uL (4.20-6.10); RDW 13.2 % (11.5-14.5); WBC 11.8 10x3/uL (4.8-10.8)
[2018-01-08 06:56] LABS: ALBUMIN 3.5 g/dL (3.4-5.0); ANION GAP 13.3 mmol/L (8-16); BILIRUBIN - TOTAL 0.6 mg/dL (0.2-1.3); CALCIUM 8.2 mg/dL (8.5-10.1); CARBON DIOXIDE 28.4 mmol/L (21.0-32.0); CREATININE - SERUM 1.4 mg/dL (0.6-1.3); POTASSIUM - SERUM 4.7 mmol/L (3.5-5.1)
[2018-01-08 07:10] LABS: PROTEIN - SERUM 5.6 g/dL (6.4-8.2)
[2018-01-09] VITALS (23 sets, daily range): BP systolic 119–154; BP diastolic 63–84
[2018-01-09 05:32] LABS: HEMATOCRIT 25.1 % (42.0-54.0); HEMOGLOBIN 8.4 g/dL (13.5-17.5); MCH 31.2 pg (26.0-34.0); MCHC 33.5 g/dL (31.0-37.0); MCV 93.3 fL (80.0-100.0); MEAN PLATELET VOLUME 10.5 fL (7.4-10.4); RBC 2.69 10x6/uL (4.20-6.10); RDW 13.5 % (11.5-14.5); WBC 13.6 10x3/uL (4.8-10.8)
[2018-01-09 05:52] LABS: ALBUMIN 3.2 g/dL (3.4-5.0); ANION GAP 10.2 mmol/L (8-16); BILIRUBIN - TOTAL 0.81 mg/dL (0.2-1.3); CARBON DIOXIDE 29.4 mmol/L (21.0-32.0); CREATININE - SERUM 1.6 mg/dL (0.6-1.3); POTASSIUM - SERUM 4.6 mmol/L (3.5-5.1); PROTEIN - SERUM 5.6 g/dL (6.4-8.2)
[2018-01-10] VITALS (24 sets, daily range): BP systolic 131–165; BP diastolic 7–96
[2018-01-10 06:00] LABS: HEMATOCRIT 22.7 % (42.0-54.0); HEMOGLOBIN 7.7 g/dL (13.5-17.5); MCH 31.3 pg (26.0-34.0); MCHC 33.9 g/dL (31.0-37.0); MCV 92.3 fL (80.0-100.0); MEAN PLATELET VOLUME 10.8 fL (7.4-10.4); RBC 2.46 10x6/uL (4.20-6.10); WBC 11.1 10x3/uL (4.8-10.8)
[2018-01-10 06:32] LABS: ALBUMIN 2.8 g/dL (3.4-5.0); BILIRUBIN - TOTAL 0.78 mg/dL (0.2-1.3); CALCIUM 7.8 mg/dL (8.5-10.1); CARBON DIOXIDE 32.9 mmol/L (21.0-32.0); CREATININE - SERUM 1.4 mg/dL (0.6-1.3); PROTEIN - SERUM 5.8 g/dL (6.4-8.2)
[2018-01-10 06:36] LABS: POTASSIUM - SERUM 3.9 mmol/L (3.5-5.1)
[2018-01-11] VITALS (25 sets, daily range): BP systolic 113–157; BP diastolic 53–79
[2018-01-11 05:41] LABS: HEMATOCRIT 27.1 % (42.0-54.0); HEMOGLOBIN 9.1 g/dL (13.5-17.5); MCH 30.2 pg (26.0-34.0); MCHC 33.6 g/dL (31.0-37.0); MEAN PLATELET VOLUME 10.4 fL (7.4-10.4); RDW 13.9 % (11.5-14.5); WBC 8.8 10x3/uL (4.8-10.8)
[2018-01-11 05:44] LABS: RBC 3.01 10x6/uL (4.20-6.10)
[2018-01-11 06:05] LABS: ALBUMIN 2.5 g/dL (3.4-5.0); ANION GAP 8.8 mmol/L (8-16); BILIRUBIN - TOTAL 0.95 mg/dL (0.2-1.3); CALCIUM 7.9 mg/dL (8.5-10.1); CARBON DIOXIDE 32.3 mmol/L (21.0-32.0); CREATININE - SERUM 1.4 mg/dL (0.6-1.3); POTASSIUM - SERUM 4.1 mmol/L (3.5-5.1); PROTEIN - SERUM 5.5 g/dL (6.4-8.2)
[2018-01-12] VITALS (15 sets, daily range): BP systolic 125–159; BP diastolic 66–97
[2018-01-12 06:27] LABS: HEMATOCRIT 29.1 % (42.0-54.0); HEMOGLOBIN 9.8 g/dL (13.5-17.5); MCH 30.5 pg (26.0-34.0); MCHC 33.7 g/dL (31.0-37.0); MCV 90.7 fL (80.0-100.0); MEAN PLATELET VOLUME 10.2 fL (7.4-10.4); RBC 3.21 10x6/uL (4.20-6.10); RDW 13.3 % (11.5-14.5); WBC 7.6 10x3/uL (4.8-10.8)
[2018-01-12 06:43] LABS: ALBUMIN 2.7 g/dL (3.4-5.0); ANION GAP 9.5 mmol/L (8-16); BILIRUBIN - TOTAL 0.99 mg/dL (0.2-1.3); CALCIUM 8.1 mg/dL (8.5-10.1); CARBON DIOXIDE 31.8 mmol/L (21.0-32.0); CREATININE - SERUM 1.3 mg/dL (0.6-1.3); POTASSIUM - SERUM 4.3 mmol/L (3.5-5.1); PROTEIN - SERUM 5.9 g/dL (6.4-8.2)
[2018-01-12] MEDS ORDERED: HYDRALAZINE HCL25 MG PO (09:35)
[2018-01-12] MEDS ORDERED: LISINOPRIL2.5 MG PO (09:35)
[2018-01-12] MEDS ORDERED: LOPRESSOR25 MG PO (09:35)
[2018-01-12] MEDS ORDERED: ASPIRIN81 MG PO (09:36)
[2018-01-12] MEDS ORDERED: NORCO-5 PO (09:37)
[2018-01-12] MEDS ORDERED: CORDARONE200 MG PO (09:40)
== END 2018-01-12 14:25 | disposition home or self-care (01) | DRG 236 ==
LOC: D.SDCHOLD 05:00 → D.CVICU 05:00 → D.SDCHOLD 07:30 → D.CVICU 11:40
PROVIDERS: Internal Medicine Cardiovascular Disease
PROC: 021109W Bypass Coronary Artery, Two Arteries from Aorta with Autologous Venous Tissue, Open Approach (ICD-10-PCS; 2018-01-07)
PROC: 06BQ0ZZ Excision of Left Saphenous Vein, Open Approach (ICD-10-PCS; 2018-01-07)
PROC: 06BP0ZZ Excision of Right Saphenous Vein, Open Approach (ICD-10-PCS; 2018-01-07)
PROC: B24BZZ4 Ultrasonography of Heart with Aorta, Transesophageal (ICD-10-PCS; 2018-01-07)
PROC: 5A1221Z Performance of Cardiac Output, Continuous (ICD-10-PCS; 2018-01-07)
PROC: 02100ZC Bypass Coronary Artery, One Artery from Thoracic Artery, Open Approach (ICD-10-PCS; principal; 2018-01-07 07:30)
DX: I25.119 Atherosclerotic heart disease of native coronary artery with unspecified angina pectoris (principal); D62 Acute posthemorrhagic anemia; I10 Essential (primary) hypertension; E11.9 Type 2 diabetes mellitus without complications; R53.83 Other fatigue; R06.00 Dyspnea, unspecified; E78.5 Hyperlipidemia, unspecified

== ENCOUNTER → 2018-01-29 11:50 | Outpatient (CLI) | payer MEDICARE, OTHER ==
[2018-01-08 11:24] VITALS: BMI 25.8
[~2018-01-29 11:50] MED LIST changes: +ASPIRIN81 MG PO; +BENADRYL25 MG PO; +CORDARONE200 MG PO; +HYDRALAZINE HCL25 MG PO; +LISINOPRIL2.5 MG PO; +LOPRESSOR25 MG PO; +NORCO-5 PO
[2018-01-29 12:36] LABS: HEMATOCRIT 38.8 % (42.0-54.0); HEMOGLOBIN 12.6 g/dL (13.5-17.5); MCH 30.6 pg (26.0-34.0); MCHC 32.5 g/dL (31.0-37.0); MCV 94.2 fL (80.0-100.0); MEAN PLATELET VOLUME 9.5 fL (7.4-10.4); RBC 4.12 10x6/uL (4.20-6.10); RDW 13.8 % (11.5-14.5); WBC 7.1 10x3/uL (4.8-10.8)
[2018-01-29 12:54] LABS: ALBUMIN 3.4 g/dL (3.4-5.0); ANION GAP 9.7 mmol/L (8-16); BILIRUBIN - TOTAL 0.38 mg/dL (0.2-1.3); CALCIUM 8.6 mg/dL (8.5-10.1); CARBON DIOXIDE 29.7 mmol/L (21.0-32.0); CREATININE - SERUM 1.6 mg/dL (0.6-1.3); POTASSIUM - SERUM 4.4 mmol/L (3.5-5.1); PROTEIN - SERUM 7.3 g/dL (6.4-8.2)
== END | disposition home or self-care (01) ==
LOC: D.RAD 08:00
PROVIDERS: Internal Medicine Cardiovascular Disease
DX: J90 Pleural effusion, not elsewhere classified (principal); D64.9 Anemia, unspecified

== ENCOUNTER 2018-08-20 10:54 | Emergency (ER) | payer MEDICARE, OTHER ==
[~2018-08-20] VITALS: Ht 180.3 cm; Wt 75.0 kg
[2018-08-20 11:34] VITALS: Ht 180.3 cm; Wt 75.0 kg
[2018-08-20 15:28] VITALS: BP 122/68
== END 2018-08-20 15:29 | disposition home or self-care (01) ==
LOC: D.ER 10:54
DX: S00.93XA Contusion of unspecified part of head, initial encounter (principal); W18.30XA Fall on same level, unspecified, initial encounter; Y93.89 Activity, other specified; Y92.019 Unspecified place in single-family (private) house as the place of occurrence of the external cause

== ENCOUNTER → 2019-03-02 13:44 | Outpatient (CLI) | payer MEDICARE, OTHER ==
[2018-08-20 11:34] VITALS: BMI 23.0
== END | disposition home or self-care (01) ==
LOC: D.CT 13:44
PROVIDERS: ATTEND Family Medicine
DX: R41.0 Disorientation, unspecified (principal)

== ENCOUNTER → 2019-03-31 11:40 | Outpatient (CLI) | payer MEDICARE, OTHER ==
[2018-08-20 11:34] VITALS: BMI 23.0
== END | disposition home or self-care (01) ==
LOC: D.US 03-09 13:30
PROVIDERS: ATTEND Internal Medicine Cardiovascular Disease
DX: I25.10 Atherosclerotic heart disease of native coronary artery without angina pectoris (principal); I65.23 Occlusion and stenosis of bilateral carotid arteries; E11.9 Type 2 diabetes mellitus without complications